=== PATIENT | female | born 1950 | race Caucasian/White ===

== ENCOUNTER 2020-01-20 10:20 | Outpatient (CLI) | payer MEDICARE, MEDICAID, SELFPAY ==
--- NOTE | 2020-03-09 08:17 | PCAUD ---
Charges were entered on 03/08/2020 for this patient, but date of service was 01/19. Charges were not entered on the date of service due to an oversight. -Mandy Amin, [facility]
== END 2020-01-20 10:21 | disposition home or self-care (01) ==
LOC: ANHBWCAUD 10:21
DX: H91.93 Unspecified hearing loss, bilateral (principal)
CPT/HCPCS: 92557; 92567

== ENCOUNTER 2020-09-05 13:09 | Outpatient (CLI) | payer MEDICARE, MEDICAID, SELFPAY | END 2020-09-05 13:10 | disposition home or self-care (01) | PROVIDERS: Visit Provider Nurse Practitioner Adult Health | DX: H90.3 Sensorineural hearing loss, bilateral (principal) | CPT/HCPCS: 92557; 92567 ==

== ENCOUNTER 2021-10-16 09:04 | Outpatient (CLI) | payer MEDICARE, MEDICAID, SELFPAY | END 2021-10-16 09:05 | disposition home or self-care (01) | LOC: ANHBWCAUD 09:05 | PROVIDERS: Visit Provider Family Medicine | DX: H91.93 Unspecified hearing loss, bilateral (principal) | CPT/HCPCS: 92567 ==

== ENCOUNTER 2023-01-14 09:56 | Outpatient (CLI) | payer MEDICARE, MEDICAID, SELFPAY | END 2023-01-14 09:57 | disposition home or self-care (01) | LOC: ANHBWCAUD 09:56 | PROVIDERS: Visit Provider Family Medicine | DX: H91.93 Unspecified hearing loss, bilateral (principal) | CPT/HCPCS: 92567 ==

== ENCOUNTER 2023-02-11 11:03 | Outpatient (CLI) | payer MEDICARE, MEDICAID, SELFPAY | END 2023-02-11 11:04 | disposition home or self-care (01) | LOC: ANHBWCAUD 11:04 | PROVIDERS: Visit Provider Family Medicine | DX: H91.93 Unspecified hearing loss, bilateral (principal) | CPT/HCPCS: 99199 ==

== ENCOUNTER 2023-03-05 10:57 | Outpatient (CLI) | payer MEDICARE, MEDICAID, SELFPAY | END 2023-03-05 10:58 | disposition home or self-care (01) | LOC: ANHBWCAUD 10:58 | PROVIDERS: Visit Provider Family Medicine | DX: H90.3 Sensorineural hearing loss, bilateral (principal) | CPT/HCPCS: 92557; 92567 ==

== ENCOUNTER 2024-04-14 08:49 | Outpatient (CLI) | payer MEDICARE, MEDICAID, SELFPAY ==
--- OUTSIDE RECORDS SUMMARY | 2024-04-14 09:27 | XMS_ITS | Continuity of Care Document ---
Author Organization [facility] Address [address] [place] [address] Phone Care Team Providers Care Field Marketing Specialist Name Role Phone Cruz Norton DO Unavailable Unavailable Advance Directives Directive Yes / No Effective Date File Name No Information Encounters Encounter Description Practice Location Reason(s) For Visit Diagnoses Date Provider Providers Copied on Encounter [facility], [address], [place], [place], [id number], [place] tel:[phone] [facility] No Information Errol Ley. [address] [place], [address], [place]. tel: [phone] Family History Family Member Type Diagnosis Age At Onset No Information Payers Payer name Insurance type Covered democrat ID Authoriza tion(s) Medicare [facility] [id number] Medicaid [facility] [id number] Social History Type Description Quantity Date Captured Comments Sex Female Smoking Status No Information Chief Complaint And Reason For Visit No Information Reason For Referral Reason For Referral No Information History Of Present Illness Encounter Date Complaint History Of Prese nt Illness No Information Functional Status Date Functional Assessmen t No Information Instructions Date Instruction Additional Infor mation No Information Assessments Type Assessment Date No Information Patient Care Teams Name Effective Dates (start - stop) Status Members No Information
--- OUTSIDE RECORDS SUMMARY | 2024-04-14 09:28 | XMS_ITS | Referral Summary ---
Author Organization [facility] Address [address] [place] [address] Care Team Providers Care Manager Harbor Name Role Phone Leticia Strickland MD Primary Care Provider [phone]- [phone] Encounters Date Type Department Care Team Description 03/11/2024 10:00 AM RADIATION / CHEMISTRY TECHNICIAN Office Visit [facility] at [address] [place] [phone] Jeevan Doherty NP Heart valve disorder (Primary Dx); Pericardial effusion; Primary hypertension; Hypothyroidism due to acquired atrophy of thyroid 02/27/2024 Documentation [facility] Neurosurgery [facility] Floor 1, [address] [place] [address] Bree Price MD 02/11/2024 10:20 AM RADIATION / CHEMISTRY TECHNICIAN Office Visit [facility] Endocrinology Metabolism and Lipid [address] [place] [address] Floor 1, [address] [place] [address] Bree Price MD Hypothyroidism due to acquired atrophy of thyroid (Primary Dx); Thyroid nodule; Osteoporosis, unspecified osteoporosis type, unspecified pathological fracture presence; Vitamin D deficiency; Hyperparathyroidism (HCC) 02/10/2024 1:58 PM RADIATION / CHEMISTRY TECHNICIAN - 02/10/2024 11:59 PM RADIATION / CHEMISTRY TECHNICIAN Hospital Encounter [facility] Radiology [address] [place] [address] Thyroid nodule Discharge Disposition: Discharge to home or self care 02/09/2024 7:40 AM RADIATION / CHEMISTRY TECHNICIAN - 02/09/2024 11:59 PM RADIATION / CHEMISTRY TECHNICIAN Hospital Encounter [facility] Cardiology [address] [place] [address] Robson Betancourt MD Heart valve disorder Discharge Disposition: Discharge to home or self care 02/06/2024 Orders Only [facility] Cardiac Catheterization [address] [place] [address] Robson Betancourt MD Heart valve disorder (Primary Dx) 02/06/2024 Telephone [facility] Cardiac Catheterization [address] [place] [address] Areli Sandhu RN 01/27/2024 Orders Only [facility] Cardiac Catheterization [address] [place] [address] Robson Betancourt MD Heart valve disorder (Primary Dx) 01/22/2024 9:00 AM RADIATION / CHEMISTRY TECHNICIAN Office Visit [facility] at [address] [place] [address] Jeevan Doherty NP Pericardial effusion (Primary Dx); Heart valve disorder; Primary hypertension; Hypothyroidism due to acquired atrophy of thyroid; Pure hypercholesterolemia from Last 3 Months Allergies Active Allergy Reactions Criticality Noted Date Comments Amoxicillin-Pot Clavulanate Hives Medium 01/04/20 17 Benazepril Unknown 01/03/2017 Cholecalciferol (Vitamin D3) Unknown 018 Sulfa (Sulfonamide Antibiotics) Angioedema High 07/02 Medications amLODIPine (NORVASC) 10 mg tablet Take 1 tablet (10 mg total) by mouth daily 0 Active famotidine (PEPCID) 40 mg tablet Take 1 tablet (40 mg total) by mouth 2 (two) times a day 8 Active levothyroxine (SYNTHROID, LEVOTHROID) 50 mcg tablet Take 1 tablet (50 mcg total) by mouth nightly 0 Active escitalopram (LEXAPRO) 10 mg tablet Take 1 tablet (10 mg total) by mouth daily 1 Active polyethylene glycol (MIRALAX) 17 gram/dose powder daily Active alendronate (FOSAMAX) 70 mg tablet Take 1 tablet (70 mg total) by mouth every 7 days 0 Active aluminum-magnesiu m hydroxide-simethi cone (MAALOX MAX) suspension 400-400-40 mg/5 mL Take 30 mL by mouth every 4 (four) hours as needed Active bisacodyL 5 mg tablet Take 10 mg by mouth daily 9 Active bismuth subsalicylate (PEPTO-BISMOL) suspension [place] Bismuth Active cinacalcet (SENSIPAR) 30 mg tablet Take 1 tablet (30 mg total) by mouth every other day 7 Active diphenhydrAMINE (BENADRYL) 25 mg capsule Take 1 tablet/capsule (25 mg total) by mouth every 6 (six) hours as needed for allergies 9 Active triamcinolone (KENALOG) 0.1 % cream Apply 1 g topically 2 (two) times a day 2 Active betamethasone, augmented, (DIPROLENE) 0.05 % lotion Apply 1 Application topically daily To scalp 3 Active Ear Drops, carbamide peroxide, 6.5 % otic solution Administer 5 drops into each ear 2 (two) times a day 3 Active clotrimazole-beta methasone (LOTRISONE) cream 3 Active multivitamin tablet 3 Active Natural Fiber Laxative, sugar, powder Take 2 Other by mouth daily tablespoons 3 Active ezetimibe (ZETIA) 10 mg tablet Take 1 tablet (10 mg total) by mouth daily 4 Active cholecalciferol (VITAMIN D-3) 2000 unit capsule Take 1 capsule (2,000 Units total) by mouth daily 4 Active oxyBUTYnin (DITROPAN) 5 mg tablet Take 1 tablet (5 mg total) by mouth 3 (three) times a day 4 Active Calcium Antacid 200 mg calcium (500 mg) chewable tablet Take 1 tablet/chew tab (500 mg total) by mouth daily 4 Active cetirizine (ZyrTEC) 10 mg tablet Take 1 tablet (10 mg total) by mouth daily 4 Active apixaban (ELIQUIS) 5 mg tablet Take 1 tablet (5 mg total) by mouth 2 (two) times a day 4 025 Active hydrogen peroxide 1.5 % solution Take 10 mL by mouth daily after dinner 4 Active acetaminophen (TYLENOL) 325 mg tablet Take 2 tablets (650 mg total) by mouth every 4 (four) hours as needed for pain Active benzonatate (TESSALON) 200 mg capsule Take 1 capsule (200 mg total) by mouth 3 (three) times a day as needed Active Marta-Tussin 100 mg/5 mL syrup Take 10 mL by mouth every 4 (four) hours as needed for cough 4 Active ketoconazole 1 % shampoo Apply 10 mL topically daily as needed Active Active Problems Problem Noted Date Diagnosed Date Heart valve disorder 01/16/2022 Pericardial effusion 01/16/2022 Primary hypertension 01/16/2022 Pure hypercholesterolemia 01/16/2022 Anxiety 11/07/2021 Bradycardia 11/07/2021 Chronic diarrhea 11/07/2021 Constipation 11/07/2021 Dermatophytosis, nail 11/07/2021 Heart murmur 11/07/2021 Hyperlipidemia 11/07/2021 Eczema 06/21/2021 Spider veins of both lower extremities 1 COVID-19 04/06/2020 Vitamin D deficiency 07/13/2019 Pediculosis capitis 06/29/2019 Chronic kidney disease, stage 2 (mild) 9 Type 2 diabetes mellitus without complication (C MS/HCC) 12/07/2018 Dental decay 10/02/2018 Gingiva disorder 10/02/2018 Thyroid nodule 10/28/2017 Weight loss 03/19/2017 Generalized anxiety disorder 01/10/2017 Moderate intellectual disability 01/10/2017 History of renal calculi 01/07/2017 Oral mucositis 01/03/2017 Ganglion cyst of left foot 03/29/2016 Osteoporosis 11/03/2015 Pain in toes of both feet 02/28/2015 Multinodular goiter 11/01/2014 Generalized anxiety disorder 03/27/2009 Hypothyroidism 03/27/2009 Hypertension 03/27/2009 Primary hyperparathyroidism 11/11/2008 Immunizations Name Administration Dates Next Due DTaP 03/03/2005 Influenza, Quadrivalent, Margo l Culture-based MDCK, Antibiotic Free, Intramuscular 12/09/2018 Influenza, Quadrivalent, Spl it, Intramuscular 12/05/2020,12/16/2019,12/16/2018,12/01,01/02/2016,12/29/2015 Influenza, Quadrivalent, Spl it, Preservative Free, Intramuscular 12/18/2017,12/11/2016 Influenza, Trivalent, IM (MDV) 6,11/23/2014,03/03/2013,12/04 Influenza, Trivalent, Preser vative Free, Intramuscular 12/11/2016 Influenza, Unspecified 12/01/2017 Pneumococcal Conjugate PCV 13 08/31/2018 Pneumococcal Polysaccharide PPV23 02/12/2008 Tdap 08/10/2015 Social History Tobacco Use Types Packs/Day Years Used Date Smoking Tobacco: Never Smokeless Tobacco: Never Tobacco Cessation:Counseling Given: Not Answered Alcohol Use Standard Drinks/Week Comments No 0 (1 standard drink = 0.6 oz pur e alcohol) AUDIT-C Answer Date Recorded Q1: How often do you have a drink containing alc ohol? Never 11/07/2021 Average Number of Drinks Not on file 022 Q3: How often do you have si x or more drinks on one occasion? Never 11/07/2021 Personal Safety Answer Date Recorded Have you ever been in or are you currently in a harmful physical or emotional relationship or is someone making you feel afraid or unsafe? Denies 02/09/2024 Comments Unknown Sex and Gender Information Value Date Recorded Sex Assigned at Not on file Legal Sex Female 1:50 AM RADIATION / CHEMISTRY TECHNICIAN Gender Identity Not on file Sexual Orientation Not on file Last Filed Vital Signs Vital Sign Reading Time Taken Comments Blood Pressure 119/84 03/11/2024 10:13 AM RADIATION / CHEMISTRY TECHNICIAN Pulse 92 03/11/2024 10:13 AM RADIATION / CHEMISTRY TECHNICIAN Temperature 36.7 C (98 F) 02/11/2024 10:23 AM RADIATION / CHEMISTRY TECHNICIAN Respiratory Rate 18 02/11/2024 10:23 AM RADIATION / CHEMISTRY TECHNICIAN Oxygen Saturation 96% 02/11/2024 10:23 AM RADIATION / CHEMISTRY TECHNICIAN Inhaled Oxygen Concentration - - Weight 53.5 kg (118 lb) 03/11/2024 10:13 AM RADIATION / CHEMISTRY TECHNICIAN Height 157.5 cm (5' 2 ) 03/11/2024 10:13 AM RADIATION / CHEMISTRY TECHNICIAN Body Mass Index 21.58 03/11/2024 10:13 AM RADIATION / CHEMISTRY TECHNICIAN Plan of Treatment Not on file Procedures Procedure Name Priority Date/Time Associated Diagnosis Comments US THYROID Schedule Routine, Read Routine (OP Routine) 02/10/2024 2:50 PM RADIATION / CHEMISTRY TECHNICIAN Thyroid nodule TRANSESOPHAGEAL ECHO (BRYCE) W DOPPLER/CF WO CONTRAST Routine 02/09/2024 9:54 AM RADIATION / CHEMISTRY TECHNICIAN Heart valve disorder ECG 12-LEAD Routine 02/09/2024 8:27 AM RADIATION / CHEMISTRY TECHNICIAN DEXA AXIAL AND FOREARM BONE DENSITY SCAN Schedule Routine, Read Routine (OP Routine) 06/13/2023 9:46 AM CDT Osteoporosis, unspecified osteoporosis type, unspecified pathological fracture presence COMPREHENSIVE METABOLIC PANEL Routine 08/14/2020 7:20 AM CDT Primary hyperparathyroidism (CMS/HCC) from Last 3 Months or Most Recently Relevant to Health Maintenance Results * US Thyroid (02/10/2024 2:50 PM RADIATION / CHEMISTRY TECHNICIAN) Anatomical Region Laterality Modality Head and Neck N/A Ultrasound 02/10/2024 3:03 PM RADIATION / CHEMISTRY TECHNICIAN Impressions 02/10/2024 3:03 PM RADIATION / CHEMISTRY TECHNICIAN Multiple thyroid lesions which are solid and hypoechoic and would meet criteria for biopsy. The lesion in the right inferior thyroid was atypia of undetermined significance on the prior biopsy. An additional lesion in the right lobe, 2 lesions in the left lobe and one in the isthmus are all ti RADS 4 lesions. Electronically signed by: Nithya Martinez M.D. Narrative 02/10/2024 3:03 PM RADIATION / CHEMISTRY TECHNICIAN Thyroid ultrasound CLINICAL HISTORY: 73-year-old female with a history of thyroid nodules a right inferior lobe thyroid nodule was biopsied on 04/08/2023 with the results demonstrating atypia of undetermined significance. A right inferior lobe nodule was biopsied in 2016 and was benign. Repeat FNA in 2018 and was benign. COMPARISON: Thyroid ultrasound dated 12/11/2022 FINDINGS: The thyroid is enlarged. The right lobe of the thyroid measures 6.5 x 3.6 x 2.9 cm. The left lobe of the thyroid measures 8.3 x 2.8 x 3.9 cm. The isthmus measures 1.6 cm. There are innumerable ill-defined solid and predominantly isoechoic nodules seen throughout both lobes of the thyroid more so on the right than the left. Right lobe of the thyroid. 2 nodules on the right in particular will be described. The nodule which is hypoechoic and was biopsied in the past. On today's examination this nodule measures 2.8 x 2.4 x 3.1 cm., The maximum size 3.1 cm. The composition is solid the echogenicity is very hypoechoic and the margins are lobular. This is just slightly increased in size when compared to the ultrasound of 12/11/2022. A 2nd lesion in the right lobe of the thyroid is solid and hypoechoic measuring 1.4 x 1.7 x 1.3 cm. This was noted on the prior study however the prior study was subcentimeter this has significantly increased in size from the prior study and has 4 ACR TI RADS points for a TR 4 which is moderately suspicious and FNA is recommended if greater than 1.5 cm. Left lobe of the thyroid. 2 lesions in the left lobe of the thyroid is solid and hypoechoic representing tiny RADS 4 moderately suspicious lesions one in the upper thyroid measuring 1.5 x 1.4 x 1.0 cm and one in the mid thyroid measuring 1.9 x 0.9 x 0.8 cm. There is a lesion in the isthmus which measures 1.9 x 1.7 x 1.4 cm this is also solid and hypoechoic, a tI-RADS 4 lesion this lesion looks different when compared to the prior ultrasound examination. Procedure Note Nithya Martinez MD - 02/10/2024 Thyroid ultrasound CLINICAL HISTORY: 73-year-old female with a history of thyroid nodules a right inferior lobe thyroid nodule was biopsied on 04/08/2023 with the results demonstrating atypia of undetermined significance. A right inferior lobe nodule was biopsied in 2016 and was benign. Repeat FNA in 2018 and was benign. COMPARISON: Thyroid ultrasound dated 12/11/2022 FINDINGS: The thyroid is enlarged. The right lobe of the thyroid measures 6.5 x 3.6 x 2.9 cm. The left lobe of the thyroid measures 8.3 x 2.8 x 3.9 cm. The isthmus measures 1.6 cm. There are innumerable ill-defined solid and predominantly isoechoic nodules seen throughout both lobes of the thyroid more so on the right than the left. Right lobe of the thyroid. 2 nodules on the right in particular will be described. The nodule which is hypoechoic and was biopsied in the past. On today's examination this nodule measures 2.8 x 2.4 x 3.1 cm., The maximum size 3.1 cm. The composition is solid the echogenicity is very hypoechoic and the margins are lobular. This is just slightly increased in size when compared to the ultrasound of 12/11/2022. A 2nd lesion in the right lobe of the thyroid is solid and hypoechoic measuring 1.4 x 1.7 x 1.3 cm. This was noted on the prior study however the prior study was subcentimeter this has significantly increased in size from the prior study and has 4 ACR TI RADS points for a TR 4 which is moderately suspicious and FNA is recommended if greater than 1.5 cm. Left lobe of the thyroid. 2 lesions in the left lobe of the thyroid is solid and hypoechoic representing tiny RADS 4 moderately suspicious lesions one in the upper thyroid measuring 1.5 x 1.4 x 1.0 cm and one in the mid thyroid measuring 1.9 x 0.9 x 0.8 cm. There is a lesion in the isthmus which measures 1.9 x 1.7 x 1.4 cm this is also solid and hypoechoic, a tI-RADS 4 lesion this lesion looks different when compared to the prior ultrasound examination. IMPRESSION: Multiple thyroid lesions which are solid and hypoechoic and would meet criteria for biopsy. The lesion in the right inferior thyroid was atypia of undetermined significance on the prior biopsy. An additional lesion in the right lobe, 2 lesions in the left lobe and one in the isthmus are all ti RADS 4 lesions. Electronically signed by: Nithya Martinez M.D. us Bree Price MD IMG US PROCEDURES Fi nal Result * TRANSESOPHAGEAL ECHO (BRYCE) W DOPPLER/CF WO CONTRAST (02/09/2024 9:54 AM RADIATION / CHEMISTRY TECHNICIAN) Anatomical Region Laterality Modality Ultrasound 02/09/2024 9:36 AM RADIATION / CHEMISTRY TECHNICIAN Addenda Addendum by Robson Betancourt MD on 02/09/2024 11:23 AM RADIATION / CHEMISTRY TECHNICIAN [address] [address] TRANSESOPHAGEAL ECHOCARDIOGRAM Patient Name: GOLDIE ASH : 1950 Study Date: 02/09/2024 9:36:12 AM Gender: F Tech: NORMA Ref Provider: ROBSON BETANCOURT Height(Cm): BSA: Weight(Kg): Order Provider: ROBSON BETANCOURT - PROCEDURES: Transesophageal Echo Report: Transesophageal echocardiogram was performed in the echocardiography laboratory. The procedure was monitored with automatic blood pressure monitoring, ECG tracings, and pulse oximetry. Gag reflex was abolished with topical Cetacain. Moderate conscious sedation was achieved with fentanyl and versed. The transesophageal probe was placed in the esophagus posterior to the heart without any complications. The patient tolerated the procedure well. INDICATIONS: Heart Valve Disorder and I38 Endocarditis, valve unspecified. PROCEDURE: BRYCE: Full study including 2D color Doppler and spectral Doppler SEDATION: Moderate sedation was done using 4 mg Versed and 200 mcg fentanyl. Sedation start time 9:19 and sedation end time 9:45. Sedation was administered under my supervision and RN in the room with continuous monitoring of patient's vital signs, airway and hemodynamic. Sedation was tolerated very well by the patient and at the end of the procedure patient was conscious. MEASUREMENTS: 2D/MM Value Range Doppler Value Range Estimated EF 60 % TR Peak Fuentes 4.0 m/s [ 1.0 - 2.8 ] TR Peak PG 65 mmHg 2D/MM Value Range Doppler Value Range - FINDINGS: Left Ventricle: Normal global and regional left ventricular systolic function. Normal left ventricular cavity size. LV wall thickness is within normal limits. Ejection Fraction: Ejection Fraction is estimated to be 60 %. Right Ventricle: Normal right ventricular size. Normal right ventricular systolic function. Left Atrium: There is marked enlargement of the left atrium. LA Appendage: No DONOVAN thrombus seen. Right Atrium: The right atrium is normal in size. There is moderate enlargement of the right atrium. Atrial Septum: Normal atrial septum. Normal appearance of interatrial septum and foramen ovale. Mitral Valve: Mitral valve structurally normal and appears to open and close adequately. Trace mitral valve regurgitation. Aortic Valve: Normal appearance and function of the aortic valve. Trileaflet aortic valve. Tricuspid Valve: Right ventricular systolic pressure is consistent with marked pulmonary hypertension. Estimated PA systolic pressure 75 mm Hg. There is moderate to severe tricuspid regurgitation. Pulmonic Valve: Normal pulmonic valve appearance and function with trace (physiologic) regurgitation. Pericardium: Small to moderate pericardial effusion. No echocardiographic evidence to suggest pericardial tamponade. Aorta: Normal appearing ascendiing aorta. IVC: The IVC is not well visualized. CONCLUSIONS: 1. Normal global and regional left ventricular systolic function. Normal left ventricular cavity size. LV wall thickness is within normal limits. 2. Normal right ventricular size. Normal right ventricular systolic function. 3. Right ventricular systolic pressure is consistent with marked pulmonary hypertension. Estimated PA systolic pressure 75 mm Hg. There is moderate to severe tricuspid regurgitation. 4. Small to moderate pericardial effusion. No echocardiographic evidence to suggest pericardial tamponade. Electronically Signed By: Robson Betancourt MD [facility] 02/09/2024 10:56:01 AM RADIATION / CHEMISTRY TECHNICIAN us Robson Betancourt MD CV ECHO PROCEDURES Edited R esult - Final * ECG 12 lead (02/09/2024 8:27 AM RADIATION / CHEMISTRY TECHNICIAN) 02/09/2024 8:27 AM RADIATION / CHEMISTRY TECHNICIAN Narrative [facility] - 02/09/2024 9:04 AM RADIATION / CHEMISTRY TECHNICIAN Vent Rate: 83 bpm RR Interval: [address] Interval: 0 msec QRS Duration: 87 msec QT Interval: 395 msec QTC Interval: 434 msec P-R-T [place]: 26037 - 106 - 59 degrees IMPRESSION: ATRIAL FIBRILLATION ANTEROLATERAL MYOCARDIAL INFARCTION , PROBABLY OLD [40+ ms Q WAVE IN I/aVL/V3- V6] ABNORMAL ECG Electronically Signed By: Robson Betancourt MD B Robson Betancourt MD ECG ORDERABLES Final Resul t [facility] * Dexa Axial and Forearm Bone Density Scan (06/13/2023 9:46 AM CDT) Anatomical Region Laterality Modality Wrist, Body N/A Radiographic Alice ging Narrative 06/13/2023 10:25 AM CDT Patient Name: Goldie Ash Date of : 1950 Date of scan: 06/13/2023 Bone mineral density was performed on a [employer] Discovery Densitometer. Based on machine cross-calibration and precision studies the least significant changes of this densitometer is 0.024 g/cm2 at the spine, 0.020 g/cm2 at the total proximal femur, and 0.014g/cm2 at the forearm. HISTORY: This is a 72 y.o. postmenopausal female with a history of hyperparathyroidism, osteoporosis, and thyroid disease. She reports that she has never smoked. She has never used smokeless tobacco. Currently on treatment with vitamin D, alendronate (Fosamax), and thyroid hormone. INDICATIONS: Menopause status, treatment monitoring, and history of osteoporosis. FINDINGS: BONE MINERAL DENSITY OF THE LUMBAR SPINE Bone Mineral Density (BMD) of the lumbar spine was measured from L1-L4 and the average density was calculated to be 0.787 gm/cm2. This corresponds to a T-score (standard deviations from the mean of young adults) of -2.4. When compared to the previous study of 12/28/2021 there has been no significant changes in bone density. BONE MINERAL DENSITY OF THE PROXIMAL FEMUR Bone Mineral Density (BMD) of the left hip total was found to be 0.622 gm/cm2. This corresponds to a T-score standard deviations from the mean of young adults of -2.6. Femoral neck is 0.498 gm/cm2 with a T-score (standard deviations from the mean of young adults) of -3.2. When compared to the previous study of 12/28/2021 there has been no significant changes in bone density. BONE MINERAL DENSITY OF THE FOREARM Bone Mineral density (BMD) of the right proximal 1/3 of the radius measures 0.579 gm/cm2. This corresponds to a T-score (standard deviations from the mean of young adults) of -1.9. When compared to the previous study of 12/28/2021 there has been no significant changes in bone density. A forearm bone density study was performed in addition to the routine study because of history of hyperparathyroidism. SUMMARY: Bone mineral density shows evidence of osteoporosis and marked increase risk of fracture. There has been no significant changes in bone density since previous measurement. ADDITIONAL COMMENTS: Postmenopausal Women and Men Over 50: Diagnostic criteria: Osteoporosis: BMD at or below -2.5 T-score; Osteopenia (low bone mass): BMD between -1.0 and -2.5 T-score. If the patient has a history of a fragility fracture, a fracture that occurred with trauma equivalent to a fall from a standing position or less, then the diagnosis is osteoporosis regardless of bone density. The history and data sections of the bone mineral density scan were prepared by Kae Trujillo(Anna)(Mendy)(BD) CBDT who is accredited by the International Society of Clinical Densitometry. The overall patient assessment and scan interpretation were performed by Velma Mi MD who is certified by the International Society of Clinical Densitometry. [id number] Bree Price MD [facility] PROCEDURES F inal Result * (ABNORMAL) Comprehensive metabolic panel (08/14/2020 7:20 AM CDT) [facility] Glucose 90 65 - 99 mg/dL [facility] Comment: Fasting reference interval BUN 38(H) 7 - 25 mg/dL [facility] Creatinine 1.21(H) 0.50 - 0.99 mg/dL [facility] Comment: For patients >49 years of age, the reference limit for Creatinine is approximately 13% higher for people identified as -[place]. eGFR NON-AFR. DUTCH 46(L) > OR = 60 mL/min/1. 73m2 [facility] EGFR 54(L) > OR = 60 mL/min/1. 73m2 [facility] BUN/creat ratio 31(H) 6 - 22 (calc) [facility] Sodium 142 135 - 146 mmol/L [facility] Potassium, pl 4.3 3.5 - 5.3 mmol/L [facility] Chloride 106 98 - 110 mmol/L [facility] CO2 28 20 - 32 mmol/L [facility] Calcium 9.1 8.6 - 10.4 mg/dL [facility] Protein, sr 7.4 6.1 - 8.1 g/dL [facility] Albumin 4.0 3.6 - 5.1 g/dL [facility] GLOBULIN 3.4 1.9 - 3.7 g/dL (calc) [facility] Alb/glob ratio 1.2 1.0 - 2.5 (calc) [facility] Bilirubin, total 0.5 0.2 - 1.2 mg/dL [facility] Alk phos 47 37 - 153 U/L [facility] AST 13 10 - 35 U/L [facility] ALT (SGPT) 10 6 - 29 U/L [facility] Blood specimen (specimen) 08/14/2020 7:20 AM CDT 08/14/2020 7:21 AM CDT Narrative [facility] - 08/15/2020 3:31 PM CDT FASTING:YES FASTING: YES us Bree Price MD LAB BLOOD ORDERABLES Final Result [facility] [id number] [place] [id number] from Last 3 Months or Most Recently Relevant to Health Maintenance Insurance MEDICARE IDDE IDDE MEDICARE MEDICARE IDPA Care Teams Manager [place] Relationship Specialty Start Date End Date Leticia Strickland MD [address] [place] [address] PCP - General Family Medicine 01/22/24
--- OUTSIDE RECORDS SUMMARY | 2024-04-14 09:28 | XMS_ITS | Encounter Summary ---
Author Organization [facility] Address [address] [place] [address] Phone Care Team Providers Care Windmill Technician Name Role Phone No, Physician Primary Care Provider [phone] Natividad Bellamy WIRE COMMUNICATIONS ENGINEER Primary Care Provider [phone] Ad Ricardo MD Primary Care Provider + [phone] Jeevan Doherty WIRE COMMUNICATIONS ENGINEER Primary Care Provider + [phone] Leticia Strickland MD Primary Care Provider + [phone] Encounter Details Date Type Department Care Team (Latest Contact Info) Description 05/23/2018 Orders Only BLOOD IM EML Scanning, Provider Social History Tobacco Use Types Packs/Day Years Used Date Smoking Tobacco: Never Smokeless Tobacco: Never Alcohol Use Standard Drinks/Week Comments No 0 (1 standard drink = 0.6 oz pur e alcohol) Comments Unknown Sex and Gender Information Value Date Recorded Sex Assigned at Not on file 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 Gender Identity Not on file Sexual Orientation Not on file documented as of this encounter Plan of Treatment Not on file documented as of this encounter Procedures Procedure Name Priority Date/Time Associated Diagnosis Comments SCAN - LABS 05/23/2018 documented in this encounter Results * SCAN - LABS (05/23/2018) us Provider Scanning Final Result documented in this encounter Visit Diagnoses Not on filedocumented in this encounter Care Teams Windmill Technician Relationship Specialty Start Date End Date No, Physician PCP - General 03/12/18 07/09/18 Natividad Bellamy NP PCP - General Nurse Practitioner 07/10/18 12/10/22 Ad Ricardo MD [address] [place] [address] [place] [address] PCP - General Family Medicine 12/11/22 06/12/23 Jeevan Doherty NP [address] [place] [address] [address] [place] [address] PCP - General Internal Medicine 06/13/23 01/21/24 Leticia Strickland MD [address] [place] [address] PCP - General Family Medicine 01/22/24 documented as of this encounter
--- OUTSIDE RECORDS SUMMARY | 2024-04-14 09:28 | XMS_ITS | Encounter Summary ---
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 [address] PCP - General Family Medicine 01/22/24 documented as of this encounter
--- OUTSIDE RECORDS SUMMARY | 2024-04-14 09:28 | XMS_ITS | Encounter Summary ---
Author Organization [facility] Address [address] [place] [address] Phone Care Team Providers Care Foil Wrapper Name Role Phone Ad Ricardo MD Primary Care Provider +- [phone] Jeevan Doherty NP Primary Care Provider + [phone] Leticia Strickland MD Primary Care Provider [phone] Encounter Details Date Type Department Care Team (Latest Contact Info) Description 01/16/2023 Orders Only BLOOD IM EML Scanning, Provider [...] more drinks on one occasion? 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 Gender Identity Not on file Sexual Orientation Not on file documented as of this encounter Plan of Treatment Not on file documented as of this encounter Procedures Procedure Name Priority Date/Time Associated Diagnosis Comments SCAN - LABS 01/16/2023 documented in this encounter Results * SCAN - LABS (01/16/2023) us Provider Scanning Final Result documented in this encounter Visit Diagnoses Not on filedocumented in this encounter Care Teams Foil Wrapper Relationship Specialty Start Date End Date Ad Ricardo MD [address] [place] [address] [place] [address] PCP - General Family Medicine 12/11/22 06/12/23 Jeevan Doherty NP [address] [place] [address] [address] [place] [address] PCP - General Internal Medicine 06/13/23 01/21/24 Leticia Strickland MD [address] [place] [address] PCP - General Family Medicine 01/22/24 documented as of this encounter
--- OUTSIDE RECORDS SUMMARY | 2024-04-14 09:28 | XMS_ITS | Encounter Summary ---
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 Gender Identity Not on file Sexual Orientation Not on file documented as of this encounter Plan of Treatment Not on file documented as of this encounter Procedures Procedure Name Priority Date/Time Associated Diagnosis Comments SCAN - LABS 01/07/2024 documented in this encounter Results * SCAN - LABS (01/07/2024) us Provider Scanning Final Result documented in this encounter Visit Diagnoses Not on filedocumented in this encounter Care Teams Paper Twister Tender Relationship Specialty Start Date End Date Jeevan Doherty NP [address] [place] [address] [address] [place] [address] PCP - General Internal Medicine 06/13/23 01/21/24 Leticia Strickland MD [address] [place] [address] PCP - General Family Medicine 01/22/24 documented as of this encounter
--- OUTSIDE RECORDS SUMMARY | 2024-04-14 09:28 | XMS_ITS | Encounter Summary ---
Author Organization [facility] Address [address] [place] [address] Phone Care Team Providers Care Blast Setter Name Role Phone Natividad Bellamy NP Primary Care Provider [phone] Ad Ricardo MD Primary Care Provider + [phone] Jeevan Doherty NP Primary Care Provider + [phone] Leticia Strickland MD Primary Care Provider + [phone] Encounter Details Date Type Department Care Team (Latest Contact Info) Description 09/10/2018 Orders Only BLOOD IM EML Scanning, Provider Social History Tobacco Use Types Packs/Day Years Used Date Smoking Tobacco: Never Smokeless Tobacco: Never Alcohol Use Standard Drinks/Week Comments No 0 (1 standard drink = 0.6 oz pur e alcohol) Comments Unknown Sex and Gender Information Value Date Recorded Sex Assigned at Not on file Legal Sex Female 1:50 AM TOURIST AGENT Gender Identity Not on file Sexual Orientation Not on file documented as of this encounter Plan of Treatment Not on file documented as of this encounter Procedures Procedure Name Priority Date/Time Associated Diagnosis Comments SCAN - RADIOLOGY/IMAGING 09/10/2018 documented in this encounter Results * SCAN - RADIOLOGY/IMAGING (09/10/2018) Anatomical Region Laterality Modality Other us Provider Scanning Final Result documented in this encounter Visit Diagnoses Not on filedocumented in this encounter Care Teams Blast Setter Relationship Specialty Start Date End Date Natividad Bellamy NP PCP - General Nurse Practitioner 07/10/18 12/10/22 Ad Ricardo MD [address] [place] [address] PCP - General Family Medicine 12/11/22 06/12/23 Jeevan Doherty NP [address] [place] [address] [address] [place] [address] PCP - General Internal Medicine 06/13/23 01/21/24 Leticia Strickland MD [address] [place] [address] PCP - General Family Medicine 01/22/24 documented as of this encounter
--- OUTSIDE RECORDS SUMMARY | 2024-04-14 09:28 | XMS_ITS | Clinical Summary ---
Author Organization [facility] Address [address] [place] [address] Care Team Providers Care Engineering Operations Leader Name Role Phone Leticia Strickland MD Primary Care Provider [phone] Allergies Active Allergy Reactions Criticality Noted Date [...] daily 9 Active bismuth subsalicylate (PEPTO-BISMOL) suspension [place] Bismuth Active cinacalcet (SENSIPAR) 30 mg tablet [...] Hypothyroidism 03/27/2009 Hypertension 03/27/2009 Primary hyperparathyroidism 11/11/2008 Encounters Date Type Department Care Team Description 03/11/2024 10:00 AM PLACEMENT SECRETARY Office Visit [place] [employer] Engineer at [address] [address] Jeevan Doherty NP Heart valve disorder (Primary Dx); Pericardial effusion; Primary hypertension; Hypothyroidism due to acquired atrophy of thyroid 02/27/2024 Documentation [facility] Neurosurgery [address], [address] [place] [address] Bree Price MD 02/11/2024 10:20 AM PLACEMENT SECRETARY Office Visit [facility] Endocrinology Metabolism and Lipid [address] [place] [address] Bree Price MD Hypothyroidism due to acquired atrophy of thyroid (Primary Dx); Thyroid nodule; Osteoporosis, unspecified osteoporosis type, unspecified pathological fracture presence; Vitamin D deficiency; Hyperparathyroidism (HCC) 02/10/2024 1:58 PM PLACEMENT SECRETARY - 02/10/2024 11:59 PM PLACEMENT SECRETARY Hospital Encounter [facility] Radiology 1 [place] [address] Thyroid nodule Discharge Disposition: Discharge to home or self care 02/09/2024 7:40 AM PLACEMENT SECRETARY - 02/09/2024 11:59 PM PLACEMENT SECRETARY Hospital Encounter [facility] Cardiology 1 [place] [address] Robson Betancourt MD Heart valve disorder Discharge Disposition: Discharge to home or self care 02/06/2024 Orders Only [facility] Cardiac Catheterization 1 [place] [address] Robson Betancourt MD Heart valve disorder (Primary Dx) 02/06/2024 Telephone [facility] Cardiac Catheterization [address] [place] [address] Areli Sandhu RN 01/27/2024 Orders Only [facility] Cardiac Catheterization [address] [place] [address] Robson Betancourt MD Heart valve disorder (Primary Dx) 01/22/2024 9:00 AM PLACEMENT SECRETARY Office Visit [place] [employer] [facility] Engineer at [facility] [address] [place] [address] Jeevan Doherty NP Pericardial effusion (Primary Dx); Heart valve disorder; Primary hypertension; Hypothyroidism due to acquired atrophy of thyroid; Pure hypercholesterolemia from Last 3 Months Immunizations Name Administration Dates Next Due DTaP 03/03/2005 Influenza, Quadrivalent, Margo l Culture-based MDCK, Antibiotic Free, Intramuscular 12/09/2018 Influenza, Quadrivalent, Spl it, Intramuscular 12/05/2020,12/16/2019,12/16/2018,12/01,01/02/2016,12/29/2015 Influenza, Quadrivalent, Spl it, Preservative Free, Intramuscular 12/18/2017,12/11/2016 Influenza, Trivalent, IM (MDV) 6,11/23/2014,03/03/2013,12/04 Influenza, Trivalent, Preser vative Free, Intramuscular 12/11/2016 Influenza, Unspecified 12/01/2017 Pneumococcal Conjugate PCV 13 08/31/2018 Pneumococcal Polysaccharide PPV23 02/12/2008 Tdap 08/10/2015 Surgical History Surgery Date Site/Laterality Comments IR FINE NEEDLE ASPIRATION W IMAGE GUIDANCE 11/22/2015 N/A Medical History Medical History Date Comments Mitral valve regurgitation Family History Medical History Relation Name Comments No Known Problems Mother Relation Name Status Comments Mother Social History Tobacco Use Types Packs/Day Years [...] on file Legal Sex Female 1:50 AM PLACEMENT SECRETARY Gender Identity Not on file Sexual Orientation Not on file Obstetrics History Last Filed Vital Signs Vital Sign Reading Time Taken Comments Blood Pressure 119/84 03/11/2024 10:13 AM PLACEMENT SECRETARY Pulse 92 03/11/2024 10:13 AM PLACEMENT SECRETARY Temperature 36.7 C (98 F) 02/11/2024 10:23 AM PLACEMENT SECRETARY Respiratory Rate 18 02/11/2024 10:23 AM PLACEMENT SECRETARY Oxygen Saturation 96% 02/11/2024 10:23 AM PLACEMENT SECRETARY Inhaled Oxygen Concentration - - Weight 53.5 kg (118 lb) 03/11/2024 10:13 AM PLACEMENT SECRETARY Height 157.5 cm (5' 2 ) 03/11/2024 10:13 AM PLACEMENT SECRETARY Body Mass Index 21.58 03/11/2024 10:13 AM PLACEMENT SECRETARY Plan of Treatment Health Maintenance Due Date Last Done Comments Albumin Creatinine Ratio, Urine 1950 Colon Cancer Screening-Colonoscopy 1950 Depression Screening 1950 Hemoglobin A1C 1950 Hepatitis C Screening 1950 Dilated Eye Exam 1950 Foot Exam 1950 Hepatitis B Screening 1970 Zoster Vaccine (1 of 2) 2002 Well Visit 65+ 2017 Breast Cancer Screening-Mammogram 07/29/2018 018 Lipid Panel 08/25/2018 08/25/2017 Pneumococcal vaccine 65+ (3 of 3 - PPSV23 or PCV20) 09/01/2019 08/31/2018, 02/12/2008 eGFR 08/14/2021 08/14/2020, 07/29/2018 Fall Risk Assessment 02/08/2025 02/09/2024 Osteoporosis Screening-Bone Density Scan 06/12/2025 06/13/2023, 12/28/2021, 09/12/2020, Additional history exists DTaP/Tdap/Td Vaccine (3 - Td or Tdap) 08/09/2025 08/10/2015, 03/03/2005 Influenza Vaccine Completed 11/21/2023, , 12/13/2021, Additional history exists Procedures Procedure Name Priority Date/Time Associated Diagnosis Comments US THYROID Schedule Routine, Read Routine (OP Routine) 02/10/2024 2:50 PM PLACEMENT SECRETARY Thyroid nodule TRANSESOPHAGEAL ECHO (BRYCE) W DOPPLER/CF WO CONTRAST Routine 02/09/2024 9:54 AM PLACEMENT SECRETARY Heart valve disorder ECG 12-LEAD Routine 02/09/2024 8:27 AM PLACEMENT SECRETARY DEXA AXIAL AND FOREARM BONE DENSITY SCAN Schedule Routine, Read Routine (OP Routine) 06/13/2023 9:46 AM CDT Osteoporosis, unspecified osteoporosis type, unspecified pathological fracture presence COMPREHENSIVE METABOLIC PANEL Routine 08/14/2020 7:20 AM CDT Primary hyperparathyroidism (CMS/HCC) from Last 3 Months or Most Recently Relevant to Health Maintenance Results * US Thyroid (02/10/2024 2:50 PM PLACEMENT SECRETARY) Anatomical Region Laterality Modality Head and Neck N/A Ultrasound 02/10/2024 3:03 PM PLACEMENT SECRETARY Impressions 02/10/2024 3:03 PM PLACEMENT SECRETARY Multiple thyroid lesions which are solid and [...] Nithya Martinez M.D. Narrative 02/10/2024 3:03 PM PLACEMENT SECRETARY Thyroid ultrasound CLINICAL HISTORY: 73-year-old female with [...] W DOPPLER/CF WO CONTRAST (02/09/2024 9:54 AM PLACEMENT SECRETARY) Anatomical Region Laterality Modality Ultrasound 02/09/2024 9:36 AM PLACEMENT SECRETARY Addenda Addendum by Robson Betancourt MD on 02/09/2024 11:23 AM PLACEMENT SECRETARY [address] [address] TRANSESOPHAGEAL ECHOCARDIOGRAM Patient Name: GOLDIE ASH : [...] tamponade. Electronically Signed By: Robson Betancourt MD [facility] 02/09/2024 10:56:01 AM PLACEMENT SECRETARY Robson Betancourt MD CV ECHO PROCEDURES Edited R esult - Final * ECG 12 lead (02/09/2024 8:27 AM PLACEMENT SECRETARY) 02/09/2024 8:27 AM PLACEMENT SECRETARY Narrative [facility] - 02/09/2024 9:04 AM PLACEMENT SECRETARY Vent Rate: 83 bpm RR Interval: 722 msec DC Interval: 0 msec QRS Duration: 87 msec QT Interval: 395 msec QTC Interval: 434 msec P-R-T [place]: [id number] - 106 - 59 degrees IMPRESSION: ATRIAL FIBRILLATION ANTEROLATERAL MYOCARDIAL INFARCTION , PROBABLY OLD [40+ ms Q WAVE IN I/aVL/V3- V6] ABNORMAL ECG Electronically Signed By: Robson Betancourt MD [facility] Robson Betancourt MD ECG ORDERABLES Final Resul t [facility] * Dexa Axial and Forearm Bone Density Scan (06/13/2023 9:46 AM CDT) Anatomical Region Laterality Modality Wrist, Body N/A Radiographic Alice ging Narrative 06/13/2023 10:25 AM CDT Patient Name: Goldie Ash Date of : 1950 Date of scan: 06/13/2023 Bone mineral density was performed on a HoloMy True Fit Discovery Densitometer. Based on machine cross-calibration and [...] mineral density scan were prepared by Kae Marin)(Mendy)(BD) CBDT who is accredited by the International Society of Clinical Densitometry. The overall patient assessment and scan interpretation were performed by Velma Mi MD who is certified by the International Society of Clinical Densitometry. [id number] Bree Price MD [facility] DXA PROCEDURES F inal Result * (ABNORMAL) Comprehensive metabolic panel (08/14/2020 7:20 AM CDT) [facility] Glucose 90 65 - 99 mg/dL [facility] Comment: Fasting reference interval BUN 38(H) 7 - 25 mg/dL [facility] Creatinine 1.21(H) 0.50 - 0.99 mg/dL [facility] Comment: For patients >49 years of age, the reference limit for Creatinine is approximately 13% higher for people identified as -Thai. eGFR NON-AFR. NAMIBIAN 46(L) > OR = 60 mL/min/1. 73m2 [...] 08/15/2020 3:31 PM CDT FASTING:YES FASTING: YES Bree Price MD LAB BLOOD ORDERABLES Final Result [facility] [address] [place] [address] from Last 3 Months or Most Recently Relevant to Health Maintenance Insurance MEDICARE [employer] MEDICARE [facility] Address: [address] [address] MEDICARE [facility] Care Teams Engineering Operations Leader Relationship Specialty Start Date End Date Leticia Strickland MD [address] [place] [address] PCP - General Family Medicine 01/22/24
--- OUTSIDE RECORDS SUMMARY | 2024-04-14 09:28 | XMS_ITS | Clinical Summary ---
Author Organization [facility] Address [address] [facility], [place] [address] Phone Care Team Providers Care Nursing Care Attendant Name Role Phone Natalie Palencia APRN, BONDERITE OPERATOR Unavailable [phone] Roberto La MD Unavailable Madeline Bishop AIRCONDITIONING ENGINEER, BONDERITE OPERATOR Primary Care Provider [phone] Allergies Active Allergy Reactions Criticality Noted Date Comments Amoxicillin-Pot Clavulanate Hives 01/04/20 17 Benazepril Unknown 01/03/2017 Sulfa Antibiotics Other (see Comments) 12/20/19 24 Medications Ergocalciferol (VITAMIN D2) 2000 UNITS Tablet Take 50,000 Units by mouth once. Active Cholecalciferol (VITAMIN D-3 PO) Take by mouth. Active Hydrocortisone Butyrate (LOCOID) 0.1 % Solution by Apply externally route. Active DiphenhydrAMINE HCl (DIPHENHYDRAMINE COUGH PO) Take by mouth. Activ e acetaminophen (TYLENOL) 325 MG Tablet Take 325 mg by mouth every 4 hours as needed. Active oxybutynin (DITROPAN) 5 MG/5ML Syrup Take 10 mg by mouth 2 times daily. 03/20/19 17 Active Psyllium (REGULOID PO) Take 15 mL by mouth daily. DISSOLVE 1 TABLESPOON IN 8 OZ LIQUID & TAKE ONCE DAILY (FOLLOW WITH 8 OUNCES) Active traMADol (ULTRAM) 50 MG Tablet Take 50 mg by mouth every 6 hours as needed. Active other by Other route. THERE-GEL 0.5% SHAMPOO SHAMPOO DIRECTED TWICE A WEEK ON Friday & Friday FOR DANDRUFF Active Neomycin-Bacitraci n-Polymyxin (Triple Antibiotic) Ointment by Apply externally route. Active alendronate (FOSAMAX) 70 MG Tablet Take 1 Tablet by mouth every 7 days. TAKES ON FRIDAYS. Take in am before any medicines or food. Drink a big glass of water and do not eat or take any other medicine for one hour. 12 Tablet 3 01/20/20 Active amLODIPine (NORVASC) 10 MG Tablet Take 1 Tablet by mouth nightly. 90 Tablet 3 01/20/20 24 Active apixaban (ELIQUIS) 5 MG TabletIndications: Venous Thromboembolism Take 1 Tablet by mouth 2 times daily for 90 days. Indications: Venous Thromboembolism 180 Tablet 01/20/20 24 2024 Active atenolol (TENORMIN) 25 MG Tablet Take 1 Tablet by mouth nightly. 90 Tablet 3 01/20/20 24 Active Aug Betamethasone Dipropionate 0.05 % Lotion Apply 3 mL daily for 90 days. 120 mL 3 01/20/20 24 2024 Active bisacodyl EC (Dulcolax) 5 MG Tablet Delayed Response TAKE DIRECTED BY OFFICE FOR COLONOSCOPY PREP 12 Tablet 01/20/20 24 Active bismuth subsalicylate (Bismatrol) 262 MG/15ML Suspension Take 30 mL by mouth every 6 hours as needed for Diarrhea or Indigestion. 236 mL 3 01/20/20 24 Active calcium carbonate (Tomasz-Gest Antacid) 500 MG Chewable Tablet Take 1 Tablet by mouth daily. 30 Tablet 11 01/20/20 24 Active cinacalcet (Sensipar) 30 MG Tablet Take 1 Tablet by mouth every 48 hours. TAKE 1 TABLET BY MOUTH EVERY OTHER DAY AT 7AM 30 Tablet 11 01/20/20 Active escitalopram (LEXAPRO) 5 MG/5ML Solution Take 10 mL by mouth daily. 450 mL 11 01/20/20 Active ezetimibe (ZETIA) 10 MG Tablet Take 1 Tablet by mouth nightly. 90 Tablet 3 01/20/20 24 Active famotidine (PEPCID) 40 MG Tablet Take 1 Tablet by mouth 2 times daily. 60 Tablet 11 01/20/20 Active furosemide (LASIX) 20 MG Tablet Take 1 Tablet by mouth daily for 90 days. 90 Tablet 01/20/20 24 2024 Active guaiFENesin (ROBITUSSIN) 100 MG/5ML Liquid Take 10 mL by mouth every 4 hours as needed for Congestion. 840 mL 1 01/20/20 24 Active Hydrogen Peroxide (Peroxyl) 1.5 % SolutionIndication s:Oral mucositis,Gingiva disorder swish 10 mL around in the mouth over affected area for at least one minute, then spit out TID -after breakfast, after supper and at bedtime 900 mL 11 01/20/20 Active ketoconazole (NIZORAL) 2 % Shampoo Apply 5 mL daily for 360 days. 120 mL 11 01/20/20 24 2024 Active levothyroxine (SYNTHROID) 50 MCG Tablet Take 1 Tablet by mouth daily. 90 Tablet 11 01/20/20 Active polyethylene glycol (MiraLax) 17 GM/SCOOP Powder TAKE DIRECTED BY OFFICE FOR COLONOSCOPY PREP 510 g 01/20/20 24 Active simethicone (Gas-X Ultra Strength) 180 MG Capsule TAKE DIRECTED BY OFFICE FOR COLONOSCOPY PREP 01/20/20 Active multi-vitamins (Multivitamin) Tablet Take 1 Tablet by mouth daily for 360 days. 90 Tablet 3 01/20/20 24 2024 Active Wheat Dextrin (EQ Fiber Powder) Powder Take 10 g by mouth daily. 477 g 3 01/20/20 24 Active Soluble Fiber Therapy Powder 01/23/20 Active hydrogen peroxide-benzy alc (Peroxyl) 1.5-6 % Solution by Swish & Spit route nightly as needed. Active triamcinolone (KENALOG) 0.1 % Cream Apply 2 times daily. Active Benzonatate 200 MG Capsule Take 200 mg by mouth 3 times daily as needed for Cough. Active Soap & Cleansers (CETAPHIL GENTLE CLEANSER EX) by Apply externally route. Active betamethasone dipropionate 0.05 % Lotion Apply 2 times daily. Active azelastine (ASTELIN) 0.1 % SolutionIndication s:Subacute pansinusitis,Recur rent acute suppurative otitis media without spontaneous rupture of tympanic membrane of both sides 2 Sprays by Nasal route 2 times daily. Use in each nostril as directed 30 mL 3 02/03/20 Active Active Problems Problem Noted Date Diagnosed Date Mitral regurgitation 12/25/2023 Tricuspid regurgitation 12/25/2023 Pulmonary hypertension 12/25/2023 Pleural effusion 12/25/2023 Pericardial effusion 12/25/2023 Acute pulmonary embolism without acute cor pulmo nale 12/21/2023 Gingiva disorder 10/02/2018 Dental decay 10/02/2018 Weight loss 03/19/2017 Moderate intellectual disability 01/10/2017 Generalized anxiety disorder 01/10/2017 Oral mucositis 01/03/2017 Ganglion cyst of left foot 03/29/2016 Pain in toes of both feet 02/28/2015 Dermatophytosis, nail Resolved Problems Problem Noted Date Diagnosed Date Resolved Date Multifocal pneumonia 12/21/2023 024 COVID-19 12/21/2023 12/25/2023 Aspiration pneumonia, unspec ified aspiration pneumonia type, unspecified laterality, unspecified part of lung 12/20/2023 12/25/2023 Encounters Date Type Department Care Team Description 03/24/2024 [facility]phone [facility] [address] [place] [phone] Madeline Bishop APRN, BONDERITE OPERATOR Need Order 03/15/2024 1:15 PM OPERATIONS LEADER Office Visit [facility] Pulmonology & Sleep Medicine [facility] [address] [place] [address] Leticia Strickland MD Ahmed, Nadeem, MD Pulmonary hypertension (HCC) (Primary Dx); Acute pulmonary embolism without acute cor pulmonale, unspecified pulmonary embolism type (HCC); Nonrheumatic tricuspid valve regurgitation; Clotting disorder (HCC) Discharge Disposition: Discharged to home or Selfcare 03/15/2024 Telephone [facility] Pulmonology & Sleep Medicine [facility] [address] [place] [address] Monica La APRN, BONDERITE OPERATOR 03/15/2024 Travel 02/09/2024 [facility]phone [facility] [address] [place] [address] Leticia Strickland MD Advice Only 02/09/2024 Telephone [facility] Cardiology [facility] [address] [place] [phone] Rayna Rowan APRN, BONDERITE OPERATOR Appointment 02/03/2024 10:30 AM OPERATIONS LEADER Office Visit [facility] - [place] [address] [place] [phone] Leticia Strickland MD Subacute pansinusitis (Primary Dx); Recurrent acute suppurative otitis media without spontaneous rupture of tympanic membrane of both sides Discharge Disposition: Discharged to home or Selfcare 02/02/2024 12:59 PM OPERATIONS LEADER - 02/02/2024 11:59 PM OPERATIONS LEADER Hospital Encounter [facility] Cardiology Services [address] [place] [phone] Natalie Paelncia AIRCONDITIONING ENGINEER, BONDERITE OPERATOR Discharge Disposition: Discharged to home or Selfcare 02/02/2024 Travel 01/27/2024 9:50 AM OPERATIONS LEADER Urgent Care Visit [facility] [place] [address] [place] [address] Jodie Abdullahi APRN, BONDERITE OPERATOR Viral URI (Primary Dx); Acute cough; Moderate intellectual disability Discharge Disposition: Discharged to home or Selfcare 01/27/2024 Telephone [facility] [place] [address] [place] [phone] Letciia Strickland MD 01/27/2024 Travel 01/23/2024 Telephone [facility] Call [facility] [address] [place] [address] Leticia Strickland MD Medication Management 01/20/2024 10:00 AM OPERATIONS LEADER Office Visit [facility] [place] [address] [place] [address] Leticia Strickland MD Hearing loss due to cerumen impaction, bilateral (Primary Dx); Oral mucositis; Gingiva disorder; Pulmonary hypertension (HCC); Acute pulmonary embolism without acute cor pulmonale, unspecified pulmonary embolism type (HCC) Discharge Disposition: Discharged to home or Selfcare 01/20/2024 Travel 01/15/2024 Telephone [facility] [place] [address] [place] [address] Leticia Strickland MD from Last 3 Months Immunizations Immunization Administration Dates Next Due DTAP VACCINE 03/03/2005 Influenza Vaccine 11/21/2023 Influenza Vaccine, Quadrivalent, PF 11/02,12/13/2021,12/07/2020,2017,12/11/2016 Influenza Vaccine,unspecifie d Formulation 12/01/2017 Influenza, Injectable, Mdck,quadrivalent,with Preservative 12/09/2018 Influenza, Injectable, Quadrivalent 07/2020,12/16/2018,12/01/2016,2015,12/29/2015 Influenza, Quadrivalent, Adjuvanted 12/16/2019 Influenza, Seasonal, Injecta ble, Undefined 11/02/2015,11/23/2014,03/03/2013,2012 Influenza,Split Virus,Trivalent,Injectable,PF 12/11/2016 Pneumococcal Vaccine - 13 Valent 08/31/2018 Pneumococcal Vaccine Adult - 23 Valent 02/12/2008 RSV, Recombinant, Protein Trujillo bunit Rsvpref, Adjuvant Recon (Arexvy) 04/10/2023 TDAP Vaccine 08/10/2015 Family History Medical History Relation Name Comments Heart Attack Father Heart Disease Father Stroke Father Congestive Heart Failure Mother Renal Failure Mother Relation Name Status Comments Father Mother Social History Tobacco Use Types Packs/Day Years Used Date Smoking Tobacco: Never Smokeless Tobacco: Never Tobacco Cessation:Counseling Given: Not Answered Alcohol Use Standard Drinks/Week Comments No 0 (1 standard drink = 0.6 oz pur e alcohol) [facility] Utilities Answer Date Recorded In the past 12 months has e [employer], gas, oil, or water [employer] threatened to shut off services in your home? Patient declined 12/20/2023 Social Connection and Isolation Panel [NHANES] A nswer Date Recorded In a typical week, how many times do you talk on the phone with family, friends, or neighbors? Patient declined 12/20/2023 How often do you get togethe r with friends or relatives? Patient declined 12/20/2023 How often do you attend jew or holiness serv ices? Patient declined 12/20/2023 Do you belong to any clubs o r organizations such as jew groups, unions, fraternal or athletic groups, or school groups? Patient declined 12/20/2023 How often do you attend meet ings of the clubs or organizations you belong to? Patient declined 12/20/2023 Are you , , di vorced, , never , or living with a partner? Patient declined 12/20/2023 AUDIT-C Answer Date Recorded Q1: How often do you have a drink containing alc ohol? Patient declined 12/20/2023 Q2: How many drinks containi ng alcohol do you have on a typical day when you are drinking? Patient declined 12/20/2023 Q3: How often do you have si x or more drinks on one occasion? Patient declined 12/20/2023 Overall Financial Resource Strain (CARDIA) Answe r Date Recorded How hard is it for you to pa y for the very basics like food, housing, medical care, and heating? Patient declined 12/20/2023 PHQ-2 Answer Date Recorded Total Score - Questions 1-9 0 01/01 [facility] - Occupational Stress Questionnaire Answer Date Recorded Do you feel stress - tense, restless, nervous, or anxious, or unable to sleep at night because your mind is troubled all the time - these days? Patient declined 12/20/2023 Exercise Vital Sign Answer Date Recorde d On average, how many days pe r week do you engage in moderate to strenuous exercise (like a brisk walk)? Patient declined On average, how many minutes do you engage in exercise at this level? Patient declined 12/20/2023 Hunger Vital Sign Answer Date Recorded Within the past 12 months, y ou worried that your food would run out before you got the money to buy more. Patient declined Within the past 12 months, t he food you bought just didn't last and you didn't have money to get more. Patient declined PRAPARE - Transportation Answer Date Re corded In the past 12 months, has l ack of transportation kept you from medical appointments or from getting medications? Patient declined 12/20/2023 In the past 12 months, has l ack of transportation kept you from meetings, work, or from getting things needed for daily living? Patient declined 12/20/2023 Housing Stability Vital Sign Answer Dru e Recorded In the last 12 months, was t here a time when you were not able to pay the mortgage or rent on time? Patient declined 12/20/19 24 In the past 12 months, how m any times have you moved where you were living? 1 12/20/2023 At any time in the past 12 m [facility], were you homeless or living in a halfway (including now)? Patient declined 12/20/2023 Sexually Active Control Partners Comments Not Currently Comments No Sex and Gender Information Value Date Recorded Sex Assigned at Not on file Legal Sex Female 11:43 PM CDT Gender Identity Not on file Sexual Orientation Not on file Occupation Industry Job Start Date Job End Date disability - lives in a retirement Not on file Not on file Not on file Last Filed Vital Signs Vital Sign Reading Time Taken Comments Blood Pressure 110/68 03/15/2024 1:32 PM OPERATIONS LEADER Pulse 79 03/15/2024 1:32 PM OPERATIONS LEADER Temperature 36.3 C (97.4 F) 03/15/2024 1:32 PM OPERATIONS LEADER Respiratory Rate 14 03/15/2024 1:32 PM OPERATIONS LEADER Oxygen Saturation 97% 03/15/2024 1:32 PM OPERATIONS LEADER Inhaled Oxygen Concentration - - Weight 51.8 kg (114 lb 4.8 oz) 03/15/2024 1:32 P M OPERATIONS LEADER Height 160 cm (5' 3 ) 03/15/2024 1:32 PM OPERATIONS LEADER Body Mass Index 20.25 03/15/2024 1:32 PM OPERATIONS LEADER Plan of Treatment Upcoming Encounters Date Type Department Care Team (Late st Contact Info) Description 04/23/2024 2:00 PM OPERATIONS LEADER Appointment [facility] Cardiology Services [address] [place] [address] Roberto La MD [address] [place] [phone] Discharge Disposition: Discharged to home or Selfcare 05/18/2024 9:30 AM CDT [facility] [place] [address] [place] [phone] Madeline Bishop APRN, BONDERITE OPERATOR [address] [place], [place] [phone] 06/15/2024 10:00 AM CDT [facility] [address] [place] [phone] Roberto La MD [address] [place] [address] 08/03/2024 10:30 AM CDT [facility] [place] [address] [place] [phone] Madeline Bishop APRN, BONDERITE OPERATOR [address] [place] [address] Health Maintenance Due Date Last Done Comments Hepatitis C Virus (HCV) Screening 1950 Cologuard 2002 Immunochemical Fecal Occult Blood 2002 Zoster Immunization (1 of 2) 2002 Pneumococcal Immunization (50+ years) (3 of 3 - PCV20 or PCV21) 09/01/2023 08/31/2018, 02/12/2008 SARS-COV-2 Immunization ( season) 2023 02/03/2023, 12/13/2021, 10/12/2021, Additional history exists DEXA Bone Density 12/29/2023 12/28/2021, , 09/10/2018 Colonoscopy 05/19/2025 05/19/2020, 03/03, 05/19/2013 Colorectal Cancer Screening 05/19/2025 Mammogram 12/08/2025 12/09/2023, 08/2022, 12/06/2022, Additional history exists 05/19/2020, 03/03, 05/19/2013 DTaP/Tdap/Td Immunization Discontinued 08/10/2015, 03/2005 TdaP Immunization Discontinued 08/10/2015 Pneumococcal Immunization Combined Discontinued 08/31/2018, 02/12/2008 Respiratory Syncytial Virus (RSV) Immunization (Adult) Completed 04/10/2023 Influenza Immunization Completed , 11/25/2022, 12/13/2021, Additional history exists Hepatitis B Immunization Aged Out No longer eligible based on patient's age to complete this topic Meningococcal Immunization (ACWY) Aged Out No longer eligible based on patient's age to complete this topic Rotavirus Immunization Aged Out No lo nger eligible based on patient's age to complete this topic Procedures Procedure Name Priority Date/Time Associated Diagnosis Comments ENDOCRINOLOGY CONSULT 02/11/2024 12:00 AM OPERATIONS LEADER ADULT TRANS THORACIC ECHO 2D COMPLETE Routine 02/02/2024 1:43 PM OPERATIONS LEADER Pericardial effusion POC SARS-COV-2 BY MOLECULAR Routine 01/27/2024 10:14 AM OPERATIONS LEADER Acute cough [facility] SCREENING BILATERAL DIGITAL W CAD Routine 12/09/2023 12:38 PM CDT Visit for screening mammogram [facility] BONE DENSITOMETRY AXIAL SKELETON Routine 09/12/2020 11:25 AM CDT Primary hyperparathyroidism (HCC) Osteoporosis, unspecified osteoporosis type, unspecified pathological fracture presence COLONOSCOPY Routine 05/19/2013 from Last 3 Months or Most Recently Relevant to Health Maintenance Results * ENDOCRINOLOGY CONSULT (02/11/2024 12:00 AM OPERATIONS LEADER) 02/11/2024 us Leticia Strickland MD GENERIC SCAN ORDERS CONSUL T Final Result SCAN * ADULT TRANS THORACIC ECHO 2D COMPLETE (02/02/2024 1:43 PM OPERATIONS LEADER) AV Peak Grad mmHg 9.61 mmHg RESULTING AGENCY Mean Aortic Valve Gradient (MAVG) 5 mmHg RESULTING AGENCY LV end patt diam cm 4.1 cm RESULTING AGENCY LV end sys diam cm 2.6 cm RESULTING AGENCY Aortic Root Diam cm 2.4 cm RESULTING AGENCY LA vol index ml/m2 64 ml/m2 RESULTING AGENCY LVOT Peak Fuentes m/sec 1.12 m/sec RESULTING AGENCY AV Peak Fuentes m/sec 1.55 m/sec RESULTING AGENCY MV Mean Grad mmHg 1 mmHg RESULTING AGENCY MVA by PHT cm2 4.31 cm2 RESUL TING AGENCY TR Fuentes m/sec 3.44 m/sec RESULTI NG AGENCY E/E' 10.7 RESULTING AGENCY AV Area (VTI) cm2 1.85 cm2 RESULTING AGENCY SEPTUM DIASTOLIC CM 0.8 cm RESULTING AGENCY PW DIASTOLIC CM 1 cm RESU LTING AGENCY LA VOLUME 95.9 ml RESULTING AGENCY Anatomical Region Laterality Modality CARDIO N/A Ultrasound Narrative 02/02/2024 5:15 PM OPERATIONS LEADER Transthoracic Echocardiography Report (TTE) Patient name MIHIR White 1950 Patient ID (UPI) [id number] Indications: Pericardial effusion. Study Date02/02/2024 Technical quality: Adequate Type of Study: TTE procedure: Adult Trans Thoracic Echo 2D Complete. Priority:RoutineHR: 90 bpmBP: 110/62 mmHg Conclusions Summary - Normal right ventricular cavity size and normal systolic function. -Small circumferential pericardial effusion - Biatrial enlargement -Mild mitral valve prolapse with mild regurgitation - Severe tricuspid valve regurgitation - Moderately elevated estimated pulmonary artery systolic pressure, 50 mm Hg assuming RA pressure of 3 mm which is likely underestimated in the setting of severe tricuspid regurgitation Findings Mitral Valve -Mild mitral valve prolapse with mild regurgitation Aortic Valve The aortic valve is trileaflet with normal leaflet excursion. There is no evidence of aortic valve stenosis. There is no significant aortic valve insufficiency. Tricuspid Valve - Severe tricuspid valve regurgitation - Moderately elevated estimated pulmonary artery systolic pressure, 50 mm Hg assuming RA pressure of 3 mm which is likely underestimated in the setting of severe tricuspid regurgitation Pulmonic Valve Not well visualized, no evidence by Doppler interrogation for significant stenosis or regurgitation. Left Atrium Left atrium is severely enlarged. Calculated left atrial volume index 64 mL/m2. Left Ventricle - Normal LV size and systolic function. Calculated LVEF 63%. - Grade 3 diastolic dysfunction Right Atrium Dilated right atrium Right Ventricle - Normal right ventricular cavity size and normal systolic function. Pericardial Effusion -Small circumferential pericardial effusion Miscellaneous IVC is normal in size and respiratory response. Valves Mitral Valve Area (PHT): 4.31 cm^2 Area (continuity): 2.26 cm^2 Peak E-Wave: 1.02 m/s Mean Velocity: 0.53 m/s Peak Gradient: 4.16 mmHg Mean Gradient: 1 mmHg P1/2t: 51 msec Deceleration Time: 186 msec Tissue Doppler E' Velocity: 0.04 m/s E/E':10.7 E/Lat E': 10.7 E/Med E':18.4 Aortic Valve Area (continuity): 1.85 cm^2 Mean Velocity: 1.11 m/s Area (VTI):1.84 cm^2 Mean Gradient: 5 mmHg Peak Velocity: 1.55 m/s AV VTI: 26 cm Peak Gradient: 9.61 mmHg Tricuspid Valve Peak E-Wave: 0.82 m/s Peak Gradient: 2.73 mmHg TR Velocity: 3.44 m/s TR Gradient: 47.33 mmHg Pulmonic Valve Peak Velocity: 0.85 m/s Mean Velocity: 0.53 m/s Peak Gradient: 2.92 mmHg Mean Gradient: 1 mmHg LVOT Peak Velocity: 1.12 m/s Mean Velocity: 0.75 m/s Peak Gradient: 5 mmHg Mean Gradient: 3 mmHg LVOT Diameter: 1.9 cm LVOT VTI: 16.9 cm Stroke Volume: 48 ml Stroke Volume Index: 31.79 ml/m^2 Structures Left Ventricle Diastolic Dimension: 4.1 cm Systolic Dimension: 2.6 cm Septum Diastolic: 0.8 cm Septum Systolic: 1.2 cm PW Diastolic: 1 cm PW Systolic: 1.6 cm Diastolic Length: 19.4 cm Systolic Length: 10.7 cm EF Calculated: 63.12% CI: 2.85 l/min*m^2 CO: 4.31 l/min RWT: 0.49 LV EDV: 48 ml FS: 36.59 % LV EDV Index: 32 m^2 LV Length: 5.97 cm LV ESV: 17.7 ml LVOT Diameter: 1.9 cm LV ESV Index: 12 m^2 Right Ventricle RV basal dimension:2.8 cm RVOT (PLAX) diameter:4.1 cm RV mid dimension:2.6 cm RV longitudinal dimension:6.3 cm Tissue Doppler RV S': 10.6 TAPSE: 1.65 cm Left Atrium LA Systolic Pressure: 18.06 mmHg LA Area: 29.6 cm^2 LA Volume: 95.9 ml LA Index: 64ml/m^2 Right Atrium RA Area: 24.3 cm^2 Great Vessels Aorta Ascending Aorta: 2.7 cm Aorta Root:2.4 cm Ascending Aorta Index:1.79 cm/m^2 Demographics Age 73 Gender Female Race Height 60.98 in. Weight 117.99 lbs. BMI (BSA) 22.31 kg/m^2 (1.51 m^2) Adjunct [employer] Wes Reid Referring Physician Nito Physician Procedure Note Nito Redi MD - 02/02/2024 Transthoracic Echocardiography Report (TTE) Patient name MIHIR White Harry 1950 Patient ID (UPI) [id number] Indications: Pericardial effusion. Study Date02/02/2024 Technical quality: Adequate Type of Study: TTE procedure: Adult Trans Thoracic Echo 2D Complete. Priority:RoutineHR: 90 bpmBP: 110/62 mmHg Conclusions Summary - Normal right ventricular cavity size and normal systolic function. -Small circumferential pericardial effusion - Biatrial enlargement -Mild mitral valve prolapse with mild regurgitation - Severe tricuspid valve regurgitation - Moderately elevated estimated pulmonary artery systolic pressure, 50 mm Hg assuming RA pressure of 3 mm which is likely underestimated in the setting of severe tricuspid regurgitation Findings Mitral Valve -Mild mitral valve prolapse with mild regurgitation Aortic Valve The aortic valve is trileaflet with normal leaflet excursion. There is no evidence of aortic valve stenosis. There is no significant aortic valve insufficiency. Tricuspid Valve - Severe tricuspid valve regurgitation - Moderately elevated estimated pulmonary artery systolic pressure, 50 mm Hg assuming RA pressure of 3 mm which is likely underestimated in the setting of severe tricuspid regurgitation Pulmonic Valve Not well visualized, no evidence by Doppler interrogation for significant stenosis or regurgitation. Left Atrium Left atrium is severely enlarged. Calculated left atrial volume index 64 mL/m2. Left Ventricle - Normal LV size and systolic function. Calculated LVEF 63%. - Grade 3 diastolic dysfunction Right Atrium Dilated right atrium Right Ventricle - Normal right ventricular cavity size and normal systolic function. Pericardial Effusion -Small circumferential pericardial effusion Miscellaneous IVC is normal in size and respiratory response. Valves Mitral Valve Area (PHT): 4.31 cm^2 Area (continuity): 2.26 cm^2 Peak E-Wave: 1.02 m/s Mean Velocity: 0.53 m/s Peak Gradient: 4.16 mmHg Mean Gradient: 1 mmHg P1/2t: 51 msec Deceleration Time: 186 msec Tissue Doppler E' Velocity: 0.04 m/s E/E':10.7 E/Lat E': 10.7 E/Med E':18.4 Aortic Valve Area (continuity): 1.85 cm^2 Mean Velocity: 1.11 m/s Area (VTI):1.84 cm^2 Mean Gradient: 5 mmHg Peak Velocity: 1.55 m/s AV VTI: 26 cm Peak Gradient: 9.61 mmHg Tricuspid Valve Peak E-Wave: 0.82 m/s Peak Gradient: 2.73 mmHg TR Velocity: 3.44 m/s TR Gradient: 47.33 mmHg Pulmonic Valve Peak Velocity: 0.85 m/s Mean Velocity: 0.53 m/s Peak Gradient: 2.92 mmHg Mean Gradient: 1 mmHg LVOT Peak Velocity: 1.12 m/s Mean Velocity: 0.75 m/s Peak Gradient: 5 mmHg Mean Gradient: 3 mmHg LVOT Diameter: 1.9 cm LVOT VTI: 16.9 cm Stroke Volume: 48 ml Stroke Volume Index: 31.79 ml/m^2 Structures Left Ventricle Diastolic Dimension: 4.1 cm Systolic Dimension: 2.6 cm Septum Diastolic: 0.8 cm Septum Systolic: 1.2 cm PW Diastolic: 1 cm PW Systolic: 1.6 cm Diastolic Length: 19.4 cm Systolic Length: 10.7 cm EF Calculated: 63.12% CI: 2.85 l/min*m^2 CO: 4.31 l/min RWT: 0.49 LV EDV: 48 ml FS: 36.59 % LV EDV Index: 32 m^2 LV Length: 5.97 cm LV ESV: 17.7 ml LVOT Diameter: 1.9 cm LV ESV Index: 12 m^2 Right Ventricle RV basal dimension:2.8 cm RVOT (PLAX) diameter:4.1 cm RV mid dimension:2.6 cm RV longitudinal dimension:6.3 cm Tissue Doppler RV S': 10.6 TAPSE: 1.65 cm Left Atrium LA Systolic Pressure: 18.06 mmHg LA Area: 29.6 cm^2 LA Volume: 95.9 ml LA Index: 64ml/m^2 Right Atrium RA Area: 24.3 cm^2 Great Vessels Aorta Ascending Aorta: 2.7 cm Aorta Root:2.4 cm Ascending Aorta Index:1.79 cm/m^2 Demographics Age 73 Gender Female Race Height 60.98 in. Weight 117.99 lbs. BMI (BSA) 22.31 kg/m^2 (1.51 m^2) Adjunct Faculty For Medical Terminology Wes Reid Referring Physician Nito Physician Natalie Palencia AIRCONDITIONING ENGINEER, BONDERITE OPERATOR IMG ECHO ORDERABLES Final Result * POC SARS-COV-2 BY MOLECULAR (01/27/2024 10:14 AM OPERATIONS LEADER) SARSCOV2 Negative Negative, INVALID PROCEDURE CONTROL Valid 01/27/2024 10:1 4 AM OPERATIONS LEADER Jodie Abdullahi AIRCONDITIONING ENGINEER, BONDERITE OPERATOR POINT OF CARE TESTI NG (MANUAL) Final Result * BRODY SCREENING BILATERAL DIGITAL W CAD (12/09/2023 12:38 PM CDT) Anatomical Region Laterality Modality breast Bilateral Mammography 12/09/2023 11:5 4 AM CDT Narrative 12/10/2023 11:43 AM CDT - BRODY SCREENING BILATERAL DIGITAL W CAD BILATERAL DIGITAL SCREENING MAMMOGRAM WITH CAD WITH MEDIOLATERAL OBLIQUE CRANIOCAUDAL: 12/09/2023 The study was acquired using digital technology and interpreted from soft copy. Current study was also evaluated with ICAD version 7.2. CLINICAL: Routine screening. Patient has no complaints. Patient is from a retirement. No personal history of cancer. No family history of breast cancer. Unable to obtain ACR quality images due to patient condition/habitus. She has reduced range of motion. Technologist held for exam. Patient unable to suspend respirations. COMPARISONS: Comparison is made to exams dated: 12/06/2022, 12/05/2021, and 10/31/2020 [facility]. BREAST TISSUE:There are scattered areas of fibroglandular density. FINDINGS: The study is limited due to patient body habitus. No significant masses, calcifications, or other findings are seen in either breast. There has been no significant interval change. IMPRESSION: BENIGN There is no mammographic evidence of malignancy. A 1 year screening mammogram is recommended. A letter will be sent to the patient with these results. The patient will be entered into a reminder system with a target due date of 1 year for her next screening exam. Electronically signed by: Gerda bain/tammy:12/10/2023 10:09:15 Trans Router(s): RT Danna(R)(M), [facility] letter sent: Normal Exam Reading location: [facility] Mammogram BI-RADS: Category 2: Benign Procedure Note Gerda Sanchez MD - 12/10/2023 - BRODY SCREENING BILATERAL DIGITAL W CAD BILATERAL DIGITAL SCREENING MAMMOGRAM WITH CAD WITH MEDIOLATERAL OBLIQUE CRANIOCAUDAL: 12/09/2023 The study was acquired using digital technology and interpreted from soft copy. Current study was also evaluated with ICAD version 7.2. CLINICAL: Routine screening. Patient has no complaints. Patient is from a retirement. No personal history of cancer. No family history of breast cancer. Unable to obtain ACR quality images due to patient condition/habitus. She has reduced range of motion. Technologist held for exam. Patient unable to suspend respirations. COMPARISONS: Comparison is made to exams dated: 12/06/2022, 12/05/2021, and 10/31/2020 [facility]. BREAST TISSUE:There are scattered areas of fibroglandular density. FINDINGS: The study is limited due to patient body habitus. No significant masses, calcifications, or other findings are seen in either breast. There has been no significant interval change. IMPRESSION: BENIGN There is no mammographic evidence of malignancy. A 1 year screening mammogram is recommended. A letter will be sent to the patient with these results. The patient will be entered into a reminder system with a target due date of 1 year for her next screening exam. Electronically signed by: Gerda bain/tammy:12/10/2023 10:09:15 Trans Router(s): RT Danna(R)(M), [facility] letter sent: Normal Exam Reading location: [facility] Mammogram BI-RADS: Category 2: Benign us Ad Ricardo MD IMG MAMMO ORDERABLES Final Result * BRODY BONE DENSITOMETRY AXIAL SKELETON (09/12/2020 11:25 AM CDT) Anatomical Region Laterality Modality BODY N/A Other 09/12/2020 12:0 1 PM CDT Impressions 09/12/2020 12:04 PM CDT IMPRESSION: Osteoporosis. Fracture risk assessment (FRAX): 10 year risk for a major osteoporotic fracture is 11.2 % 10 year risk for a hip fracture is 2.5 % The FRAX tool has not been validated in patients currently or previously treated with pharmacotherapy for osteoporosis. In such patients, clinical judgement must be exercised in interpreting FRAX scores as the fracture risk may be overestimated. REFERENCE: Bone mineral density: Normal (T-score above or = -1.0) Low bone mass (T-score between -1.0 and -2.5) replaces the previously used term osteopenia Osteoporosis (T-score = or below -2.5) Medical evaluation for secondary causes of low bone mineral density may be appropriate. FRAX is a World Health Organization validated fracture risk assessment tool that calculates a person's 10 year probability of a major osteoporosis related fracture and hip fracture. According to the National Osteoporosis Foundation guidelines, postmenopausal women and men age 50 or older with low bone mass and a 10 year probability of a major osteoporosis related fracture = or greater than 20% or a 10 year probability of a hip fracture = or greater than 3% should be considered for treatment. For further information, including treatment recommendations, please refer to the 2013 ISCD Official Positions (http://www.iscd.org) and the NOF's Clinician's Guide to Prevention and Treatment of Osteoporosis (http://www.nof.org/professionals/clinical-guidelines) Narrative 09/12/2020 12:04 PM CDT EXAM DESCRIPTION: BRODY BONE DENSITOMETRY AXIAL SKELETON REASON FOR STUDY: 69 y/o year old F with given history of screening. Tower Erector/Model: [employer] (S/N [id number]) CLINICAL INFORMATION: Current height: 5 foot 3 inches Maximum height: 5 foot 3 inches Weight: 120 pounds Risk factors: None COMPARISON: 09/10/2018, 10/11/2011 FINDINGS: AP LUMBAR SPINE L1-L4: Total BMD is 0.874 g/cm2 T-score is -2.6 Most recent prior BMD was 0.889 g/cm2 There has been a -1.7% change in BMD which which is not statistically significant. LEFT HIP: Current Total BMD is 0.665 g/cm2 T-score is -2.7 Most recent prior Total BMD was 0.682 g/cm2 There has been a -2.5% change in BMD which is not statistically significant. Current femoral neck BMD is 0.721 g/cm2 T-score is -2.3 LEFT FOREARM: Current Total BMD is 0.719 g/cm2 T-score is -1.9 THIS IS AN ELECTRONICALLY VERIFIED FINAL REPORT 09/12/2020 12:01 PM - Electronically signed by Austin Benson M.D. AG: KETTY Report ID: [id number] Reading Location: [id number] Procedure Note Austin Benson MD - 09/12/2020 EXAM DESCRIPTION: BRODY BONE DENSITOMETRY AXIAL SKELETON REASON FOR STUDY: 69 y/o year old F with given history of screening. Tower Erector/Model: [employer] (S/N [id number]) CLINICAL INFORMATION: Current height: 5 foot 3 inches Maximum height: 5 foot 3 inches Weight: 120 pounds Risk factors: None COMPARISON: 09/10/2018, 10/11/2011 FINDINGS: AP LUMBAR SPINE L1-L4: Total BMD is 0.874 g/cm2 T-score is -2.6 Most recent prior BMD was 0.889 g/cm2 There has been a -1.7% change in BMD which which is not statistically significant. LEFT HIP: Current Total BMD is 0.665 g/cm2 T-score is -2.7 Most recent prior Total BMD was 0.682 g/cm2 There has been a -2.5% change in BMD which is not statistically significant. Current femoral neck BMD is 0.721 g/cm2 T-score is -2.3 LEFT FOREARM: Current Total BMD is 0.719 g/cm2 T-score is -1.9 THIS IS AN ELECTRONICALLY VERIFIED FINAL REPORT 09/12/2020 12:01 PM - Electronically signed by Austin Benson M.D. AG: KETTY Report ID: [id number] Reading Location: [id number] IMPRESSION: Osteoporosis. Fracture risk assessment (FRAX): 10 year risk for a major osteoporotic fracture is 11.2 % 10 year risk for a hip fracture is 2.5 % The FRAX tool has not been validated in patients currently or previously treated with pharmacotherapy for osteoporosis. In such patients, clinical judgement must be exercised in interpreting FRAX scores as the fracture risk may be overestimated. REFERENCE: Bone mineral density: Normal (T-score above or = -1.0) Low bone mass (T-score between -1.0 and -2.5) replaces the previously used term osteopenia Osteoporosis (T-score = or below -2.5) Medical evaluation for secondary causes of low bone mineral density may be appropriate. FRAX is a World Health Organization validated fracture risk assessment tool that calculates a person's 10 year probability of a major osteoporosis related fracture and hip fracture. According to the National Osteoporosis Foundation guidelines, postmenopausal women and men age 50 or older with low bone mass and a 10 year probability of a major osteoporosis related fracture = or greater than 20% or a 10 year probability of a hip fracture = or greater than 3% should be considered for treatment. For further information, including treatment recommendations, please refer to the 2013 ISCD Official Positions (http://www.iscd.org) and the NOF's Clinician's Guide to Prevention and Treatment of Osteoporosis (http://www.nof.org/professionals/clinical-guidelines) us Bree Price MD IMG DEXA ORDERABLES Final Result * HM COLONOSCOPY (05/19/2013) us Evelyne Jaimes MD PROCEDURE/MINOR SURGICAL O RDERABLES Final Result from Last 3 Months or Most Recently Relevant to Health Maintenance Insurance MEDICARE MEDICAID [place] Advance Directives * Full Code (Latest Code Status on File) Date Activated Date Inactivated Comments 12/20/2023 10:15 PM CPR-Full Augustin atment: FULL ARREST: Attempt Resuscitation/CPR wit intubation and mechanical ventilation. PRE-ARREST: Use entire range of life support measures to stabilize the patient. Care Teams Nursing Care Attendant Relationship Specialty Start Date End Date Madeline Bishop APRN, BONDERITE OPERATOR [address] [place] [address] PCP - General Certified Nurse Practitioner 03/22/24 Natalie Palencia APRN, BONDERITE OPERATOR [address] [facility], [address] [place] [address] Nurse Practitioner Cardiology 12/31/23 Roberto La MD [address] [place] [address] Consulting Physician Pulmonary Disease 03/15/24
--- OUTSIDE RECORDS SUMMARY | 2024-04-14 09:28 | XMS_ITS | Encounter Summary ---
Author Organization [facility] Address [address] [place] [address] Phone Care Team Providers Care Direct Marketing Analyst Name Role Phone Ad Ricardo MD Primary Care Provider +- [phone] Jeevan Doherty NP Primary Care Provider + [phone] Leticia Strickland MD Primary Care Provider [phone]- [phone] Encounter Details Date Type Department Care Team (Latest Contact Info) Description 02/07/2023 Orders Only BLOOD IM EML Scanning, Provider [...] on file Legal Sex Female 1:50 AM EXTRUSION BENDER Gender Identity Not on file Sexual Orientation Not on file documented as of this encounter Plan of Treatment Not on file documented as of this encounter Procedures Procedure Name Priority Date/Time Associated Diagnosis Comments SCAN - LABS 02/07/2023 documented in this encounter Results * SCAN - LABS (02/07/2023) us Provider Scanning Final Result documented in this encounter Visit Diagnoses Not on filedocumented in this encounter Care Teams Direct Marketing Analyst Relationship Specialty Start Date End Date Ad Ricardo MD [address] [place] [address] [place] [address] PCP - General Family Medicine 12/11/22 06/12/23 Jeevan Doherty NP [address] [place] [address] [address] [place] [address] PCP - General Internal Medicine 06/13/23 01/21/24 Leticia Strickland MD [address] [address] PCP - General Family Medicine 01/22/24 documented as of this encounter
--- OUTSIDE RECORDS SUMMARY | 2024-04-14 09:28 | XMS_ITS | Encounter Summary ---
Author Organization [facility] Address [address] [facility] [place] [place] [address] Phone Care Team Providers Care Outreach Manager Name Role Phone Lawrence Carter DPM Unavailable [phone] Natividad Bellamy APRN Primary Care Provider [phone] Ad Ricardo MD Primary Care Provider [phone] Natalie Palencia APRN, DEICER KIT ASSEMBLER Unavailable + [phone] Leticia Strickland MD Primary Care Provider +- [phone] Roberto La MD Unavailable Madeline Bishop GIS MAPPING TECHNICIAN, DEICER KIT ASSEMBLER Primary Care Provider +- [phone] Encounter Details Date Type Department Care Team (Latest Contact Info) Description 04/04/2022 Transcribe Orders [facility] Central Scheduling [address] [place] [address] Natividad Bellamy APRN [address] [place] [address] Encounter for screening mammogram for malignant neoplasm of breast (Primary Dx) Social History Tobacco Use Types Packs/Day Years Used Date Smoking Tobacco: Never Smokeless Tobacco: Never Alcohol Use Standard Drinks/Week Comments No 0 (1 standard drink = 0.6 oz pur e alcohol) Comments No Sex and Gender Information Value Date Recorded Sex Assigned at Not on file Legal Sex Female 11:43 PM CDT Gender Identity Not on file Sexual Orientation Not on file Occupation Industry Job Start Date Job End Date disability - lives in a halfway Not on file Not on file Not on file documented as of this encounter Plan of Treatment Upcoming Encounters Date Type Department Care Team (Late st Contact Info) Description 04/23/2024 2:00 PM TITLE CURATIVE SPECIALIST [facility] [address] [place] [address] Roberto La MD [address] [place] [address] Discharge Disposition: Discharged to home or Selfcare 05/18/2024 9:30 AM CDT [facility] [place] [address] [place] [id number] Madeline Bishop APRN, DEICER KIT ASSEMBLER [address] [place] [address] 06/15/2024 10:00 AM CDT Office Visit [facility] Pulmonology & Sleep Medicine [facility] [address] [place] [address] Roberto La MD [address] [place] [phone] 08/03/2024 10:30 AM CDT Office Visit [facility] Primary Care - [place] [address] [place] [address] Madeline Bishop APRN, DEICER KIT ASSEMBLER [address] [facility], [place] [id number] documented as of this encounter Visit Diagnoses Diagnosis Encounter for screening mammogram for malignant neoplasm of breast- Primary Other screening mammogram documented in this encounter Additional Health Concerns Infection Onset Date Last Indicated Resolved Time Respiratory Rule-Out 05/05/2023 05/05/2023 024 11:09 AM TITLE CURATIVE SPECIALIST COVID - 19 05/05/2023 05/05/2023 05/05/2023 11:0 9 AM TITLE CURATIVE SPECIALIST COVID - 19 12/20/2023 12/20/2023 12/20/2023 6:37 PM CDT COVID - 19 Confirmed 12/20/2023 12/20/2023 024 12:16 AM TITLE CURATIVE SPECIALIST COVID - 19 12/21/2023 12/21/2023 12/31/2023 12:1 6 AM CDT COVID - 19 01/27/2024 01/27/2024 01/27/2024 10:2 4 AM TITLE CURATIVE SPECIALIST documented as of this encounter Care Teams Outreach Manager Relationship Specialty Start Date End Date Natividad Bellamy APRN PCP - General Advanced Practice Nurse 03/25/16 3 Ad Ricardo MD [address] [place] [address] [place] [address] PCP - General Smoking Tobacco Packer Hand 10/08/22 01/19/24 Leticia Strickland MD [address] [place] [address] PCP - General Family Medicine 01/20/24 03/21/24 Madeline Bishop APRN, DEICER KIT ASSEMBLER [address] [place] [address] PCP - General Certified Nurse Practitioner 03/22/24 Lawrence Carter DPM Podiatry 08/29/15 02/08/24 Natalie Palencia APRN, DEICER KIT ASSEMBLER [address] [facility], [address] [id number] Nurse Practitioner Cardiology 12/31/23 Roberto La MD [address] [place] [id number] Consulting Physician Pulmonary Disease 03/15/24 documented as of this encounter
--- OUTSIDE RECORDS SUMMARY | 2024-04-14 09:28 | XMS_ITS | Encounter Summary ---
Author Organization 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 Gender Identity Not on file Sexual Orientation Not on file documented as of this encounter Plan of Treatment Not on file documented as of this encounter Procedures Procedure Name Priority Date/Time Associated Diagnosis Comments SCAN - LABS 05/13/2023 documented in this encounter Results * SCAN - LABS (05/13/2023) us Provider Scanning Final Result documented in this encounter Visit Diagnoses Not on filedocumented in this encounter Care Teams Acute Care Certified Nursing Assistant Relationship Specialty Start Date End Date Ad Ricardo MD [address] [place] [address] [place] [address] PCP - General Family Medicine 12/11/22 06/12/23 Jeevan Doherty NP [address] [place] [address] [address] [place] [address] PCP - General Internal Medicine 06/13/23 01/21/24 Leticia Strickland MD [address] [place] [address] PCP - General Family Medicine 01/22/24 documented as of this encounter
== END 2024-04-14 08:50 | disposition home or self-care (01) ==
LOC: ANHBWCAUD 08:54
DX: H90.3 Sensorineural hearing loss, bilateral (principal)
CPT/HCPCS: 92557; 92567

== ENCOUNTER 2024-05-04 12:55 | Outpatient (CLI) | payer MEDICARE, MEDICAID, SELFPAY | END 2024-05-04 12:56 | disposition home or self-care (01) | LOC: ANHBWCAUD 12:55 | PROVIDERS: Visit Provider Internal Medicine | DX: H91.93 Unspecified hearing loss, bilateral (principal) | CPT/HCPCS: 92567 ==